=== PATIENT | male | born 1965 | race Caucasian/White ===

== ENCOUNTER 2020-08-01 16:57 | Emergency (ER) | payer MEDICAID ==
[2020-08-01 17:59] LABS: BASOPHILS # (AUTO) 0.1 10^3/uL (0.0-0.1); BASOPHILS % (AUTO) 0.5 %; EOSINOPHILS # (AUTO) 0.3 10^3/uL (0.0-0.7); EOSINOPHILS % (AUTO) 2.9 %; HCT - HEMATOCRIT 45.4 % (42.0-52.0); HGB - HEMOGLOBIN 15.1 g/dL (14.0-18.0); LYMPHOCYTES # (AUTO) 2.6 10^3/uL (1.5-3.5); MEAN CORPUSCULAR HEMOGLOBIN 30.3 pg (27.0-31.0); MEAN CORPUSCULAR HGB CONC 33.3 g/dL (32.0-36.0); MEAN CORPUSCULAR VOLUME 91.2 fL (80.0-94.0); MEAN PLATELET VOLUME 10.5 fL (7.4-11.4); MONOCYTES # (AUTO) 0.9 10^3/uL (0.0-1.0); MONOCYTES % (AUTO) 9.4 %; NEUTROPHILS # (AUTO) 5.8 10^3/uL (1.5-6.6); NEUTROPHILS % (AUTO) 59.9 %; PLT - PLATELET COUNT 225 10^3/uL (130-450); RED BLOOD COUNT 4.98 10^6/uL (4.70-6.10); RED CELL DISTRIBUTION WIDTH 12.3 % (12.0-15.0); WHITE BLOOD COUNT 9.7 x10^3/uL (4.8-10.8)
[2020-08-01 18:12] LABS: ALBUMIN 4.4 g/dL (3.2-5.5); ALBUMIN/GLOBULIN RATIO 1.3 (1.0-2.2); BILIRUBIN,TOTAL 0.5 mg/dL (0.2-1.0); CALCIUM 9.4 mg/dL (8.5-10.3); CREATININE 0.5 mg/dL (0.6-1.2); POTASSIUM 4.1 mmol/L (3.5-5.0); TOTAL PROTEIN 7.7 g/dL (6.7-8.2)
[2020-08-01 18:18] LABS: BILIRUBIN,URINE NEGATIVE (NEGATIVE); GLUCOSE, URINE (UA) NEGATIVE (NEGATIVE); KETONES,URINE (UA) NEGATIVE (NEGATIVE); LEUKOCYTE ESTERASE, URINE NEGATIVE (NEGATIVE); NITRITE,URINE NEGATIVE (NEGATIVE); OCCULT BLOOD,URINE NEGATIVE (NEGATIVE); PROTEIN,URINE NEGATIVE (NEGATIVE); UROBILINOGEN,URINE 0.2 (NORMAL) E.U./dL (NORMAL)
[2020-08-01 18:34] LABS: CLARITY,URINE CLEAR (CLEAR)
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
[2020-08-01] MEDS ORDERED: IOVERSOL 320 100 ML VIAL IVP ONE (20:20)
[2020-08-01 21:59] VITALS: BP 158/85
[2020-08-02] MEDS ORDERED: IOVERSOL 320 100 ML VIAL IVP ONE (00:06)
--- NOTE | 2020-08-02 09:07 | CT Report ---
PROCEDURE: Abdomen/Pelvis W INDICATIONS: lower abdominal pain CONTRAST: IV CONTRAST: Optiray 320 ml: 100 PO CONTRAST: *NO PO CONTRAST TECHNIQUE: After the administration of IV contrast, 5 mm thick sections acquired from the diaphragms to the symp hysis. 5 mm thick coronal and sagittal reformats were acquired. For radiation dose reduction, the f ollowing was used: automated exposure control, adjustment of mA and/or kV according to patient size. COMPARISON: None. FINDINGS: Image quality: Excellent. ABDOMEN: Lung bases: Lung bases are clear. Heart size is normal. Solid organs: Liver and spleen are normal in size and enhancement. Gallbladder is within normal ford its Biliary system is non dilated. Pancreas enhances normally. No adrenal nodules. Kidneys demons trate normal size and enhancement, without hydronephrosis. Peritoneum and bowel: Bowel loops demonstrate normal wall thickness and caliber. No free fluid or a ir. Appendix is visualized and is within normal limits. Sigmoid diverticulosis is seen, no CT eviden ce of acute diverticulitis. No abscess collection. Nodes and vessels: No retroperitoneal or mesenteric adenopathy by size criteria. Aorta and inferior vena cava are normal in size. Miscellaneous: No ventral hernias. PELVIS: Genitourinary: Bladder wall thickness is normal. Miscellaneous: Small bilateral inguinal hernias are seen containing fat only more prominent on the ri ght side. No inguinal lymphadenopathy by size criteria. Bones: No suspicious bony lesions. No vertebral body compression fractures. There is prior fusion o f L2-L4 vertebral bodies. Degenerative disc disease at L4-5 level is seen. IMPRESSION: 1. No bowel obstruction. No abnormal bowel wall thickening. Normal appendix. Sigmoid diverticulosis w ithout evidence of acute diverticulitis. No free fluid or free air. 2. Prior lumbar spine fusion as above. No discrepancies from preliminary reading. Reviewed by: Robert Espitia MD on 08/02/2020 9:05 AM PDT Approved by: Robert Espitia MD on 08/02/2020 9:05 AM PDT Station ID: [id number]
== END 2020-08-01 21:59 | disposition home or self-care (01) ==
LOC: ED 16:57
DX: K59.00 Constipation, unspecified (principal); G71.00 Muscular dystrophy, unspecified
CPT/HCPCS: 36415; 74177; 80053; 81003; 83690; 85025; 99282; 99284; Q9967; 81001; 87086

== ENCOUNTER 2020-11-26 16:10 | Outpatient (CLI) | payer MEDICAID | END 2020-11-26 16:11 | disposition home or self-care (01) | LOC: COV 16:10 | PROVIDERS: ATTEND Surgery | DX: Z01.812 Encounter for preprocedural laboratory examination (principal); K21.9 Gastro-esophageal reflux disease without esophagitis; Z12.11 Encounter for screening for malignant neoplasm of colon; Z20.822 Contact with and (suspected) exposure to COVID-19 ==

== ENCOUNTER 2020-11-28 06:10 | Day surgery (SDC) | payer MEDICAID ==
[2020-11-28] MEDS ORDERED: LACTATED RINGERS 1,000 ML IV ONE ×2 (06:17→09:15)
--- NOTE | 2020-11-28 07:10 | ANESTHESIA ---
Pre-Anesthesia VS, & Labs - Diagnosis screening, reflux - Procedure Colonoscopy, EGD Vital Signs: Temp Pulse Resp BP Pulse Ox 36.2 C L 48 L 16 137/80 H 97 11/28/20 06:22 11/28/20 06:22 11/28/20 06:22 11/28/20 06:22 11/28/20 06:22 Height: 5 ft 6 in Weight (kg): 62 kg Body Mass Index: 22.0 BMI Classification: Healthy weight - NPO >8 hours - Lab Results Lab results reviewed: Yes Home Medications and Allergies Home Medications: Ambulatory Orders Acetaminophen [Tylenol] 650 mg PO Q6H PRN 11/22/20 Ibuprofen [Motrin] 600 mg PO Q6H PRN 11/22/20 Acetaminophen [Tylenol] 650 mg PO Q6H PRN 11/22/20 Ibuprofen [Motrin] 600 mg PO Q6H PRN 11/22/20 Allergies/Adverse Reactions: Allergies Allergy/AdvReac Type Severity Reaction Status Date / Time No Known Drug Allergies Allergy Verified 08/01/20 17:11 Anes History & Medical History - Anesthetic History Anesthesia Complications: reports: No previous complications Family history of Anesthesia Complications: Denies Family history of Malignant Hyperthermia: Denies - Medical History Cardiovascular: reports: None Pulmonary: reports: None Gastrointestinal: reports: GERD, Chronic constipation Urinary: reports: None Musculoskeletal: reports: Other Endocrine/Autoimmune: reports: None Skin: reports: None Smoking Status: Never smoker Other Past Medical History: Muscular dystrophy, uses cane(right arm and left leg weakness - Surgical History Orthopedic: reports: Spine surgery Exam General: Alert, Oriented x3, Cooperative, No acute distress Dental: WNL Mouth Openin Fingerbreadth Neck Mobility: Normal Mallampati classification: I Respiratory: Lungs clear, Normal breath sounds Cardiovascular: Regular rate, Normal S1, Normal S2, No murmurs Plan Anesthesia Type: General, Total IV Consent for Procedure(s) Verified and Reviewed: Yes Code Status: Attempt Resuscitation ASA classification: 3-Severe systemic disease Is this case an emergency?: No
[2020-11-28] MEDS ORDERED: PROPOFOL 1000 MG/100 ML 1,000 MG/100 ML BOTTLE IV ONE (07:16)
[2020-11-28] MEDS ORDERED: LIDOCAINE-PF 2% 10 ML AMP SUBQ ONE (07:18)
[2020-11-28 09:33] VITALS: BP 114/77
--- NOTE | 2020-11-28 09:50 | ANESTHESIA POST OP EVALUATION ---
Anesthesia Post Eval - Post Anesthesia Eval Vitals: Last Vital Signs Temp 35.6 C L 11/28/20 09:32 Pulse 54 L 11/28/20 09:32 Resp 16 11/28/20 09:32 BP 114/77 11/28/20 09:32 Pulse Ox 99 11/28/20 09:32 CV Function Including HR & BP: Stable Pain Control: Satisfactory Nausea & Vomiting: Negative Mental Status: Baseline Respiratory Status: Airway Patent Hydration Status: Satisfactory Anesthesia Complications: None
== END 2020-11-28 06:11 | disposition home or self-care (01) ==
LOC: SDS 06:10
PROVIDERS: ATTEND Surgery
PROC: 0DB78ZX Excision of Stomach, Pylorus, Via Natural or Artificial Opening Endoscopic, Diagnostic (ICD-10-PCS; 2020-11-28)
PROC: 0DB38ZX Excision of Lower Esophagus, Via Natural or Artificial Opening Endoscopic, Diagnostic (ICD-10-PCS; 2020-11-28)
PROC: 0DB48ZX Excision of Esophagogastric Junction, Via Natural or Artificial Opening Endoscopic, Diagnostic (ICD-10-PCS; 2020-11-28)
PROC: 0DBH8ZZ Excision of Cecum, Via Natural or Artificial Opening Endoscopic (ICD-10-PCS; principal; 2020-11-28 07:30)
PROC: 0DB98ZX Excision of Duodenum, Via Natural or Artificial Opening Endoscopic, Diagnostic (ICD-10-PCS; 2020-11-28 07:30)
DX: Z12.11 Encounter for screening for malignant neoplasm of colon (principal); K63.5 Polyp of colon; K64.8 Other hemorrhoids; K29.50 Unspecified chronic gastritis without bleeding; G71.00 Muscular dystrophy, unspecified; K40.90 Unilateral inguinal hernia, without obstruction or gangrene, not specified as recurrent; Z87.891 Personal history of nicotine dependence; K21.00 Gastro-esophageal reflux disease with esophagitis, without bleeding
CPT/HCPCS: 43239; 45385; J7120; 88305

== ENCOUNTER 2020-12-04 07:00 | Outpatient (CLI) | payer MEDICAID | END 2020-12-04 23:59 | disposition home or self-care (01) | LOC: COV 07:00 | PROVIDERS: ATTEND Surgery | DX: Z01.812 Encounter for preprocedural laboratory examination (principal); K40.90 Unilateral inguinal hernia, without obstruction or gangrene, not specified as recurrent; Z20.822 Contact with and (suspected) exposure to COVID-19 ==

== ENCOUNTER 2020-12-07 08:27 | Day surgery (SDC) | payer MEDICAID ==
[~2020-12-07 08:27] MED LIST: ceFAZolin 2 GM/50 ML 2 GM/50 ML BAG IV ONE
[2020-12-07] MEDS ORDERED: LACTATED RINGERS 1,000 ML IV ONE ×2 (08:36→12:45)
--- NOTE | 2020-12-07 08:56 | ANESTHESIA ---
Pre-Anesthesia VS, & Labs - Diagnosis right inguinal hernia - Procedure laparoscopic inguinal hernia repair Height: 5 ft 6 in Weight (kg): 63.5 kg Body Mass Index: 22.6 BMI Classification: Healthy weight - NPO >8 hours - Lab Results Lab results reviewed: Yes Home Medications and Allergies Acetaminophen [Tylenol] 650 mg PO Q6H PRN 11/22/20 Ibuprofen [Motrin] 600 mg PO Q6H PRN 11/22/20 Allergies/Adverse Reactions: Allergies Allergy/AdvReac Type Severity Reaction Status Date / Time No Known Drug Allergies Allergy Verified 08/01/20 17:11 Anes History & Medical History - Anesthetic History Anesthesia Complications: reports: No previous complications Family history of Anesthesia Complications: Denies Family history of Malignant Hyperthermia: Denies - Medical History Cardiovascular: reports: None Pulmonary: reports: None Gastrointestinal: reports: GERD, Chronic constipation Urinary: reports: None Neuro: reports: Other Musculoskeletal: reports: Other (Muscular dystrophy, uses cane(right arm and left leg weakness)) Endocrine/Autoimmune: reports: None Skin: reports: None Smoking Status: Never smoker - Surgical History Orthopedic: reports: Spine surgery Exam General: Alert, Oriented x3, Cooperative, No acute distress Dental: WNL Mouth Openin Fingerbreadth Neck Mobility: Normal Mallampati classification: II Respiratory: Lungs clear, Normal breath sounds, No respiratory distress, No accessory muscle use Cardiovascular: Regular rate, Normal S1, Normal S2, No murmurs Plan Anesthesia Type: General, Transverse Abdominis Plane (TAP) Block Regional Block: Per Surgeon's request for Post Op pain control Consent for Procedure(s) Verified and Reviewed: Yes Code Status: Attempt Resuscitation ASA classification: 3-Severe systemic disease Is this case an emergency?: No
[2020-12-07] MEDS ORDERED: HYDROmorphone 0.5 MG/0.5 ML SYRINGE IVP PRN ×2 (08:58→12:00)
[2020-12-07] MEDS ORDERED: MORPHINE 2 MG/ML CARPUJECT IVP PRN (08:58)
[2020-12-07] MEDS ORDERED: fentaNYL 100 MCG/2 ML VIAL IVP PRN (08:58)
[2020-12-07] MEDS ORDERED: ATROPINE ABBOJECT 1 MG/10 ML SYRINGE IVP PRN (08:58)
[2020-12-07] MEDS ORDERED: ePHEDrine 50 MG/ML VIAL IVP PRN (08:58)
[2020-12-07] MEDS ORDERED: NALOXONE 0.4 MG/ML VIAL IVP PRN (08:58)
[2020-12-07] MEDS ORDERED: METOCLOPRAMIDE 10 MG/2 ML VIAL IVP PRN (08:58)
[2020-12-07] MEDS ORDERED: ONDANSETRON 4 MG/2 ML VIAL IVP PRN ×2 (08:58→12:00)
[2020-12-07] MEDS ORDERED: LACTATED RINGERS 1,000 ML IV SCH (09:00)
[2020-12-07] MEDS ORDERED: LIDOCAINE 2%-EPI 1:100000 20 ML MDV ONE (09:11)
[2020-12-07] MEDS ORDERED: BUPIVACAINE 0.5% PF 30 ML VIAL ONE (09:11)
[2020-12-07] MEDS ORDERED: LIDOCAINE-MPF 2% 5 ML VIAL ONE (09:17)
[2020-12-07] MEDS ORDERED: ROCURONIUM 50 MG/5 ML VIAL ONE ×2 (09:17→10:54)
[2020-12-07] MEDS ORDERED: PROPOFOL 200 MG/20 ML VIAL IVP ONE (09:17)
[2020-12-07] MEDS ORDERED: MIDAZOLAM 2 MG/2 ML VIAL ONE (09:17)
[2020-12-07] MEDS ORDERED: PROPOFOL 1000 MG/100 ML 1,000 MG/100 ML BOTTLE IV ONE (09:22)
[2020-12-07] MEDS ORDERED: LIDOCAINE 2%-EPI 1:100000 20 ML MDV SUBQ ONE ×2 (09:49)
[2020-12-07] MEDS ORDERED: BUPIVACAINE 0.5% PF 30 ML VIAL INFIL ONE ×2 (09:50)
[2020-12-07] MEDS ORDERED: DEXAMETHASONE 4 MG/ML VIAL ONE (10:49)
[2020-12-07] MEDS ORDERED: HYDROmorphone 1 MG/ML CARPUJECT ONE (10:54)
[2020-12-07] MEDS ORDERED: SUGAMMADEX 200 MG/2 ML VIAL IVP ONE (11:32)
[2020-12-07] MEDS ORDERED: LACTATED RINGERS 300 ML IV ONE (11:54)
[2020-12-07] MEDS ORDERED: oxyCODONE 5 MG TABLET PO PRN (12:00)
--- NOTE | 2020-12-07 12:11 | OPERATIVE REPORT ---
Operative Report - General Procedure Date: 12/07/20 Planned Procedure: 1. Diagnostic laparoscopy 2. Laparoscopic assisted transabdominal preperitoneal hernia repair, right 3. Other indicated procedures Pre-Op Diagnosis: History of prior surgery; Symptomatic Right Inguinal Hernia Procedure Performed: 1. Diagnostic laparoscopy 2. Laparoscopic adhesiolysis 3. Open umbilical hernia. 4. Laparoscopic assisted right transabdominal preperitoneal inguinal hernia repair Post Op Diagnosis: Same; Large Indirect Inguinal Hernia; Adhesions, panabdominal - Procedure Note Primary Surgeon: Megan Secondary Surgeon: Scott Anesthesia Provider: Devin Anesthesia Technique: General ET tube, Local Pathology: NONE Estimated Blood Loss (mL): 25 Indications: See EMR Findings: 1. Multiple adhesions from historic prior surgeries 2. Large indirect hernia defect on the right; repaired left inguinal hernia intact 3. Successful transabdominal preperitoneal repair of large right inguinal hernia using extra-large preformed Bard mesh 4. Umbilical hernia repair at the conclusion of this case Complications: NONE - Other Other Information/Narrative: Description of procedure: Patient was taken to the operating room placed supine on the operating table. Informed consent was already obtained. Patient was induced for general endotracheal anesthesia. Patient at this time was placed for Hills catheter. Patient was offloaded and padded. Side and site was marked preoperatively as the right inguinal hernia.The patient was placed supine with arms tucked at the sides. After obtaining adequate anesthesia, the patient's abdomen was prepped and draped in standard sterile fashion. The patient was placed in the Trendelenburg position. Timeout was called and agreed to by all in the room. A plan access point was incised periumbilical. An incision was made sharply. Skin and subcutaneous tissues were divided using Bovie electrocautery. Patient noted for umbilical hernia that would be repaired at the conclusion of this case in open fashion. Fascia was encountered it was sharply divided. Muscle was bluntly divided. Posterior fascia was elevated and sharply divided. Abdominal cavity was entered without incident. Again side and site was already confirmed and marked preoperatively is right inguinal hernia. There were the following notable findings: 1. Multiple adhesions from historic prior surgeries 2. Large indirect hernia defect on the right; repaired left inguinal hernia i ntact 3. Successful transabdominal preperitoneal repair of large right inguinal hernia using extra-large preformed Bard mesh 4. Umbilical hernia repair at the conclusion of this case Case began with adhesiolysis as follows: Trochars were sequentially placed towards affording appropriate abdominal access for laparoscopic and ultimately laparoscopic adhesiolysis and enterolysis. This was performed in such a way as to maximize exposure and minimize abdominal trauma. We clearly visualized, after appropriate and lengthy laparoscopic adhesiolysis, each trocar placement. Thereafter once appropriate and safe exposure was achieved without any inadvertent injuries or other complicating factors, we proceeded laparoscopic in such a way as to take down the patient's extensive intra-abdominal adhesions using sharp laparoscopic dissection, diligent electrocautery, and appropriate countertraction. Please note for multiple reasons as listed above under brief procedural findings, this patient was best suited to minimal access adhesiolysis towards avoiding open intervention, reducing the associated risks thereof, maximizing recovery, minimizing postoperative morbidity and associated stigmata, and enhancing the patient's convalescence towards assuring safe and expeditious ushering of patient into the next step of therapeutic intervention which was crucial in overall plan of care. This proceeded without any untoward complications, and without any inadvertent injuries or other adverse effect events. Two additional 5 -mm trocars were placed lateral to the rectus sheath under direct laparoscopic vision. Both inguinal regions were inspected and the median umbilical ligament, medial umbilical ligament, and lateral umbilical fold were identified. We proceeded with transabdominal preperitoneal laparoscopic repair of right inguinal hernia. The median umbilical ligament was divided sharply with electrocautery to achieve optimal exposure. The peritoneum was incised with endoscopic scissors along a line 2-4 cm above the superior edge of the hernia defect, extending from the median umbilical ligament to the anterior superior iliac spine. The peritoneal flap was mobilized inferiorly using blunt and sharp dissection. The inferior epigastric vessels were exposed, and the pubic symphysis was identified. Flaco's ligament was dissected to its junction with the femoral vein. The dis section was continued inferiorly to the iliopubic tract, with care taken to avoid injury to the femoral branch of the genitofemoral nerve and the lateral femoral cutaneous nerve. The cord structures were carefully skeletonized. [Indirect hernia: The indirect hernia sac was noted to be large and was easily mobilized from the cord structures and reduced into the peritoneal cavity/the proximal sac was dissected away from the cord structures.] A large piece of mesh (right Bard 3D max extra-large) was rolled longitudinally into a compact cylinder and passed through the Machado trocar. The cylinder was placed along the inferior aspect of the working space and unrolled into place to completely cover the direct, indirect, and femoral spaces. The mesh was tacked permanently into place, first along the medial border and the inferior border of the mesh was permanently tacked to Flaco's ligament medially from the opposite pubic tubercle to the level of the ipsilateral femoral vein. The lateral borders were tacked into place. Area was hemostatic. Multiple photographs taken. Cord structures were protected throughout. Hernia sac was reduced into the abdominal cavity and ultimately tacked to the anterior abdominal wall laterally. The peritoneal flap was closed using V-Loc sutures laparoscopically. After ensuring adequate hemostasis using electrocautery, area was irrigated and aspirated clear. The trocars were removed, and the pneumoperitoneum evacuated. The trocar incisions were closed using skin arnoldo and dry dressing applied. Patient tolerated procedure well which was no complication. The patient tolerated the procedure well and was taken to the postanesthesia care unit in stable condition. Please note that voice recognition software was used to transcribe this note and inadvertent errors might persist in spite of review and editing. I am obliged to you for your attention. I am thankful to you for allowing me to participate with you in this care of this patient.
--- NOTE | 2020-12-07 12:24 | ANESTHESIA POST OP EVALUATION ---
Anesthesia Post Eval - Post Anesthesia Eval Vitals: Last Vital Signs Temp 36.8 C 12/07/20 12:21 Pulse 78 12/07/20 12:21 Resp 16 12/07/20 12:21 BP 128/88 H 12/07/20 12:21 Pulse Ox 99 12/07/20 12:21 CV Function Including HR & BP: Stable Pain Control: Satisfactory Nausea & Vomiting: Negative Mental Status: Baseline Respiratory Status: Airway Patent Hydration Status: Satisfactory Anesthesia Complications: None
[2020-12-07] MEDS ORDERED: TAMSULOSIN 0.4 MG CAPSULE PO SCH (13:00)
[2020-12-07] MEDS ORDERED: oxyCODONE 5 MG TABLET ONE (13:22)
[2020-12-07] MEDS ORDERED: TAMSULOSIN 0.4 MG CAPSULE PO ONE (14:00)
[2020-12-07 14:24] VITALS: BP 120/76
== END 2020-12-07 08:28 | disposition home or self-care (01) ==
LOC: SDS 08:27
PROVIDERS: ATTEND Surgery
DX: K40.90 Unilateral inguinal hernia, without obstruction or gangrene, not specified as recurrent (principal); K42.9 Umbilical hernia without obstruction or gangrene; G71.00 Muscular dystrophy, unspecified; Z87.891 Personal history of nicotine dependence; R19.4 Change in bowel habit
CPT/HCPCS: 49505; A9270; C1781; J0690; J1170; J7120

== ENCOUNTER 2022-03-29 19:54 | Outpatient (CLI) | payer MEDICAID | END 2022-03-29 23:59 | disposition short-term general hospital (02) | LOC: EMS 19:54 | DX: I46.9 Cardiac arrest, cause unspecified (principal) | CPT/HCPCS: A0425; A0427; A0999 ==

== ENCOUNTER 2023-05-04 07:00 | Outpatient (CLI) | payer MEDICAID ==
--- NOTE | 2023-05-04 18:39 | XRAY Report ---
PROCEDURE: Ankle 3 View LT INDICATIONS: PAIN IN LEFT ANKLE TECHNIQUE: 3 views of the ankle were acquired. COMPARISON: None. FINDINGS: Bones: No fractures or dislocations. Ankle mortise is normally aligned. No suspicious bony lesions . Soft tissues: No tibiotalar joint effusion. Achilles tendon appears normal. IMPRESSION: No acute bony abnormality. Reviewed by: Juaquin Briones MD on 05/04/2023 6:38 PM [facility] Approved by: Juaquin Briones MD on 05/04/2023 6:38 PM [facility] Station ID: [id number]
--- NOTE | 2023-05-04 18:39 | XRAY Report ---
PROCEDURE: Knee 3 View LT INDICATIONS: PAIN IN LEFT KNEE TECHNIQUE: 3 views of the knee(s) were acquired. COMPARISON: None. FINDINGS: Bones: Subacute fractures of the medial tibial plateau and neck of the proximal fibular neck. There i s no significant depression of the medial tibial plateau by plain films. Soft tissues: No knee joint effusion. No suspicious soft tissue calcifications or masses. IMPRESSION: Subacute fractures of the medial tibial plateau and proximal fibular neck. Reviewed by: Juaquin Briones MD on 05/04/2023 6:37 PM PST Approved by: Juaquin Briones MD on 05/04/2023 6:37 PM PST Station ID: [id number]
== END 2023-05-04 23:59 | disposition home or self-care (01) ==
LOC: DI.S 07:00
PROVIDERS: ATTEND Registered Nurse
DX: S82.142A Displaced bicondylar fracture of left tibia, initial encounter for closed fracture (principal); S82.832A Other fracture of upper and lower end of left fibula, initial encounter for closed fracture; M25.572 Pain in left ankle and joints of left foot

== ENCOUNTER 2023-05-12 08:00 | Outpatient (CLI) | payer MEDICAID ==
--- NOTE | 2023-05-12 15:45 | XRAY Report ---
PROCEDURE: Knee 4 View LT INDICATIONS: LEFT KNEE PAIN TECHNIQUE: 3 views of the knee(s) were acquired. COMPARISON: 05/04/2023. FINDINGS: Bones: Comminuted proximal tibia fracture and mildly displaced proximal fibular fracture without sign ificant change compared to prior exam. Soft tissues: No knee joint effusion. No suspicious soft tissue calcifications or masses. IMPRESSION: Proximal tibia and fibula fractures without significant change. Reviewed by: Diana Quinones MD, PhD on 05/12/2023 3:44 PM PST Approved by: Diana Quinones MD, PhD on 05/12/2023 3:44 PM PST Station ID: [id number]
== END 2023-05-12 23:59 | disposition home or self-care (01) ==
LOC: DI.WOS 08:00
PROVIDERS: ATTEND Physician Assistant Surgical
DX: S82.102A Unspecified fracture of upper end of left tibia, initial encounter for closed fracture (principal); S82.832A Other fracture of upper and lower end of left fibula, initial encounter for closed fracture

== ENCOUNTER 2023-06-04 08:00 | Outpatient (CLI) | payer MEDICAID ==
--- NOTE | 2023-06-05 08:14 | XRAY Report ---
PROCEDURE: Knee 4 View LT INDICATIONS: LEFT KNEE FRACTURE TECHNIQUE: 4 views of the knee(s) were acquired. COMPARISON: Left knee radiograph on May 12, 2023 and May 04, 2023. FINDINGS: Bones: Interval callus formation of the medial tibial plateau fracture with no intra-articular exten keith. Interval callus formation of transverse, extra articular fracture of the fibular neck. Fracture planes remain conspicuous. Stable alignment. No new fractures or dislocations. No suspicious bony l esions. Soft tissues: No knee joint effusion. No suspicious soft tissue calcifications or masses. IMPRESSION: Interval osseous healing of medial tibial plateau and proximal fibular neck fractures. Stable alignme nt. Reviewed by: Miri Yuan MD on 06/05/2023 8:12 AM PST Approved by: Miri Yuan MD on 06/05/2023 8:12 AM PST Station ID: [id number]
== END 2023-06-04 23:59 | disposition home or self-care (01) ==
LOC: DI.WOS 08:00
PROVIDERS: ATTEND Physician Assistant Surgical
DX: S82.142D Displaced bicondylar fracture of left tibia, subsequent encounter for closed fracture with routine healing (principal); S82.832D Other fracture of upper and lower end of left fibula, subsequent encounter for closed fracture with routine healing

== ENCOUNTER 2023-10-04 04:42 | Outpatient (CLI) | payer MEDICAID | END 2023-10-04 23:59 | disposition EMS.NT | LOC: EMS 04:42 | DX: Z03.89 Encounter for observation for other suspected diseases and conditions ruled out (principal) ==